=== PATIENT | male | born 1945 | race Caucasian/White ===

== ENCOUNTER 2022-01-08 06:41 | Day surgery (SDC) | payer MEDICARE, BC, SELFPAY ==
[2022-01-08] MEDS: LACTATED RINGERS 1000 ML 1,000 ML 100 ML IV (07:00)
--- NOTE | 2022-01-08 07:09 | SUR.PREOP ---
HOME ANTIGEN TEST PROVIDED UPON ARRIVAL WAS NEGATIVE
[2022-01-08 07:10] VITALS: BP 143/79; PULSE 82; RESP 16; TEMP 36.5; O2SAT 98; BMI 24.0
[2022-01-08] MEDS: ETHYL CHLORIDE 1 APPLICATION 1 APPLIC TOPICAL (07:24)
[2022-01-08] MEDS: SODIUM CHLORIDE 0.9 % (FLUSH) 10 ML SYRINGE IVF (07:24)
[2022-01-08] MEDS: BUPIVACAINE 0.5 % 10 ML VIAL INJECTION (08:26)
--- NOTE | 2022-01-08 08:42 | W.ANESCHARGE ---
Anesthesia Charges Start Date/Time Anesthesia Start Date: 01/08/22 Anesthesia Start Time: 08:00 Stop Date/Time Anesthesia Stop Date: 01/08/22 Anesthesia Stop Time: 09:20 Summary Emergency: No Extremes of Age: Over 70-CPT [id number]
--- NOTE | 2022-01-08 09:20 | PM.GSPRC ---
Operative Note Date of procedure: 01/08/22 Type of Procedure: Left axillary lymph node excision Procedure Description: After discussing the risks and benefits of the procedure, the patient signed informed consent.? The operative site was marked and the patient was brought to the operating room and placed on the operating table in supine position.? Care was taken to pad the patient's pressure points.?? The patient was then given sedation by anesthesia.?? The operative site was then prepped and draped in the usual sterile fashion.? A time-out was then performed. Local anesthetic was infiltrated into the skin incision was made. This was carried down the subcutaneous tissue using electrocautery. Using a combination of blunt dissection and electrocautery, I a prominent axillary lymph node was identified and resected. The pedicle of the lymph node was identified in ligated with a 3-0 Vicryl tie. The specimen was then passed off to be sent to pathology. Hemostasis was assured with electrocautery. The incision was closed in layers with deeper interrupted 3 0 Vicryl and a running 4-0 subcuticular stitch. ? Sterile dressings were then applied. ? The patient was then woken and transported to the recovery area in stable condition. ? The patient tolerated the procedure well. Findings: Left axillary lymph node Anesthesia: MAC Surgeon: Romana Melendez MD Estimated blood loss (mL): 5 Condition: stable Disposition: same day
[2022-01-08 09:21] VITALS: BP 112/62; PULSE 66; RESP 14; TEMP 36.3; O2SAT 91
[2022-01-08 09:35] VITALS: BP 117/72; PULSE 70; RESP 16; O2SAT 97
[2022-01-08 09:50] VITALS: BP 114/71; PULSE 67; RESP 16; TEMP 36.6; O2SAT 99
--- NOTE | 2022-01-08 11:52 | W.ANESCHARGE ---
Anesthesia Charges Start Date/Time Anesthesia Start Date: 01/08/22 Anesthesia Start Time: 08:00 Stop Date/Time Anesthesia Stop Date: 01/08/22 Anesthesia Stop Time: 09:20 Summary Emergency: No Extremes of Age: Over 71-CPT 56174
== END 2022-01-08 10:00 | disposition home or self-care (01) ==
PROVIDERS: PCP Family Medicine; Visit Provider Surgery
PROC: (CPT 38500; principal; 2022-01-08 08:00)
DX: R59.0 Localized enlarged lymph nodes (principal)
CPT/HCPCS: 38500; 00400; 88307; 99100; J2250; J2704; J3010; J7120; S0020

== ENCOUNTER 2024-09-22 09:30 | Outpatient (CLI) | payer MEDICARE, BC, SELFPAY ==
--- NOTE | 2024-09-22 11:34 | P.ANES_ITS ---
Anesthesia Charges Start Date/Time Anesthesia Start Date: 09/22/24 Anesthesia Start Time: 10:55 Stop Date/Time Anesthesia Stop Date: 09/22/24 Anesthesia Stop Time: 11:20 Summary Extremes of Age - Over 70 or under 1: DEVELOPER DESIGNER Coding CPT Codes CPT Codes: MARI LWR INTST NDSC NOS - 15002 ([id number]) P2 - PATIENT W/MILD SYST DISEASE, QK - SVP MONETIZATION 2-4 CNCRNT ANETrev PROC, QX - DEVELOPER DESIGNER SVC W/ MD MED DIRECTION Additional Codes: Summary - Extremes of Age - Over 70 or under 1: DEVELOPER DESIGNER ([id number])
--- NOTE | 2024-09-22 11:34 | W.ANESCHARGE ---
Anesthesia Charges Start Date/Time Anesthesia Start Date: 09/22/24 Anesthesia Start Time: 10:55 Stop Date/Time Anesthesia Stop Date: 09/22/24 Anesthesia Stop Time: 11:20 Summary Extremes of Age - Over 70 or under 1: SQL REPORT ANALYST Coding CPT Codes CPT Codes: MARI LWR INTST NDSC NOS - 99702 ([id number]) P2 - PATIENT W/MILD SYST DISEASE, QK - HARBOR ENGINEER 2-4 CNCRNT ANETrev PROC, QX - SQL REPORT ANALYST SVC W/ MD MED DIRECTION Additional Codes: Summary - Extremes of Age - Over 70 or under 1: SQL REPORT ANALYST ([id number])
--- NOTE | 2024-09-22 11:44 | P.ANES_ITS ---
Anesthesia Charges Start Date/Time Anesthesia Start Date: 09/22/24 Anesthesia Start Time: 10:55 Stop Date/Time Anesthesia Stop Date: 09/22/24 Anesthesia Stop Time: 11:20 Summary Extremes of Age - Over 70 or under 1: MDA Coding CPT Codes CPT Codes: ANES LWR INTST NDSC NOS - [id number] ([id number]) P2 - PATIENT W/MILD SYST DISEASE, QK - SKILLED NURSING FACILITIES PROFESSIONAL 2-4 CNCRNT ANES PROC, QX - BUFFING WHEEL OPERATOR SVC W/ MD MED DIRECTION Additional Codes: Summary - Extremes of Age - Over 70 or under 1: MDA ([id number])
--- NOTE | 2024-09-22 11:44 | W.ANESCHARGE ---
Anesthesia Charges Start Date/Time Anesthesia Start Date: 09/22/24 Anesthesia Start Time: 10:55 Stop Date/Time Anesthesia Stop Date: 09/22/24 Anesthesia Stop Time: 11:20 Summary Extremes of Age - Over 70 or under 1: MDA Coding CPT Codes CPT Codes: ANES LWR INTST NDSC NOS - [id number] ([id number]) P2 - PATIENT W/MILD SYST DISEASE, QK - PATIENT SUPPORT PARTNER 2-4 CNCRNT ANES PROC, QX - CONCRETE BLOCK LAYER SVC W/ MD MED DIRECTION Additional Codes: Summary - Extremes of Age - Over 70 or under 1: MDA ([id number])
== END 2024-09-22 09:31 | disposition home or self-care (01) ==
LOC: OP CLINIC 09:31
PROVIDERS: PCP Family Medicine; Visit Provider Internal Medicine Gastroenterology
DX: Z12.11 Encounter for screening for malignant neoplasm of colon (principal); D12.2 Benign neoplasm of ascending colon; D12.4 Benign neoplasm of descending colon; K57.30 Diverticulosis of large intestine without perforation or abscess without bleeding
CPT/HCPCS: 00811; 45385; 88305; 99100; J2704